=== PATIENT | male | born 1950 | race Caucasian/White ===

== ENCOUNTER 2021-03-16 11:58 | Day surgery (SDC) | payer MEDICARE, OTHER ==
[~2021-03-16] VITALS: Ht 175.3 cm; Wt 81.6 kg
[~2021-03-16 11:58] MED LIST: Aspir 8181 MG PO; Flonase 0.05% N16 GM; GEMF600 PO; METF500 PO; Vitamin D1000 UNI1 PO
--- NOTE | 2021-03-16 13:30 | NUR ---
03/16/21 1330 Cait Escalona History, Chart, Medications and Allergies reviewed before start of procedure. Patient confirms NPO status and agrees with scheduled surgery. 3-LEAD EKG REVIEWED WITH PHYSICIAN PRIOR TO START OF PROCEDURE. MONITOR INTACT WITH CONTINUOUS PULSE OXIMETRY AND INTERMITTENT BP. PATIENT DETERMINED TO BE ASA APPROPRIATE FOR PROPOFOL SEDATION PRIOR TO START OF PROCEDURE BY . [facility]ICA SCOPE NUMBER [id number].
--- NOTE | 2021-03-16 14:06 | NUR ---
Patient States Post-Procedure ride home has been arranged. Discharge instructions reviewed with patient. Patient verbalizes understanding. Copy given to patient to take home. Discharged via wheelchair to private car for ride home.
== END 2021-03-16 14:00 | disposition home or self-care (01) ==
LOC: ORSCMMR 11:58 → ORSCSDS 13:00 → ORSCMMR 13:00
PROVIDERS: Surgery
PROC: 0DBE8ZX Excision of Large Intestine, Via Natural or Artificial Opening Endoscopic, Diagnostic (ICD-10-PCS; principal; 2021-03-16 13:00)
DX: R19.4 Change in bowel habit (principal); R19.7 Diarrhea, unspecified; Z86.010 Personal history of colon polyps; R73.03 Prediabetes; J44.9 Chronic obstructive pulmonary disease, unspecified; F17.210 Nicotine dependence, cigarettes, uncomplicated; R13.10 Dysphagia, unspecified; Z79.82 Long term (current) use of aspirin; Z79.84 Long term (current) use of oral hypoglycemic drugs; Z79.899 Other long term (current) drug therapy
CPT/HCPCS: 82947; 88305; J2704; J7120

== ENCOUNTER 2024-11-21 06:42 | Day surgery (SDC) | payer MEDICARE, OTHER ==
[2024-11-21] VITALS (9 sets, daily range): BP systolic 77–120; BP diastolic 39–94
[~2024-11-21] VITALS: Ht 175.3 cm; Wt 69.4 kg
[~2024-11-21 06:42] MED LIST changes: +ASPI81CH PO; +ATOR40TA PO; +GABA400 PO; +JARDIANCE10 MG PO; +OXYC10TA19 PO; +TAMS.4ER PO
[2024-11-21] MEDS ORDERED: Heparin Sodium 1000 Units/ML 10ML MDV ONE ×2 (07:06→07:33)
[2024-11-21] MEDS ORDERED: Verapamil HCL 2.5 MG/ML 2ML Injection ONE (07:06)
[2024-11-21] MEDS ORDERED: Nitroglycerin 2 MG/20 ML BTL ONE (07:07)
[2024-11-21] MEDS ORDERED: NS 1,000 ML IV ONE ×2 (07:07→07:33)
[2024-11-21] MEDS ORDERED: NS 250 ML IV ONE (07:07)
[2024-11-21] MEDS ORDERED: FentaNYL Citrate 50 MCG/ML 2 ML Injection ONE (07:33)
[2024-11-21] MEDS ORDERED: Midazolam HCl 1MG / ML 2ML Vial ONE (07:33)
--- NOTE | 2024-11-21 08:46 | NUR ---
PT RETURNED TO RECOVERY ROOM IN [facility]. RIGHT RADIAL TR BAND SITE SOFT NON-TENDER WITH NO HEMATOMA, NO PULSATILE BLEEDING WITH RIGHT WRIST BRACE IN PLACE. PT'S FAMILY IN ROOM AND DR DAVIDSON IN ROOM TO SEE PT. CALL LIGHT IN REACH.
[2024-11-21] MEDS ORDERED: MIDODRINE HCL10 M1 PO (08:59)
--- NOTE | 2024-11-21 09:09 | NUR ---
NO CHANGES TO R [facility] SITE. PT EATING BREAKFAST AND DRINKING COFFEE. PT DENIES DIZZINESS STATES "FEELING GOOD". PT'S FAMILY IN ROOM.
--- NOTE | 2024-11-21 09:32 | NUR ---
NO CHANGES TO R RAD SITE.
[2024-11-21] MEDS ORDERED: NORTHERA100 MG PO (10:05)
--- NOTE | 2024-11-21 10:07 | NUR ---
7 CC OF AIR REMOVED OUT OF NOW DEFLATED R TR BAND (STARTED AT 0956) OVER 7 MIN; R RAD SITE STILL SOFT NON-TENDER WITH NO HEMATOMA, NO PULSATILE BLEEDING AND RIGHT WRIST BRACE STILL IN PLACE. DISCHARGE INSTRUCTIONS REVIEWED ALL QUESTIONS ANSWERED.
--- NOTE | 2024-11-21 10:21 | NUR ---
NO CHANGES TO R RAD SITE.
--- NOTE | 2024-11-21 11:05 | NUR ---
NO CHANGES TO DEFLATED R RAD TR BAND SITE; STILL SOFT NON-TENDER WITH NO HEMATOMA, NO PULSATILE BLEEDING. DEFLATED TR BAND REMOVED, POLYMEM PLACED OVER R RAD SITE AND RIGHT RAD WRIST BOARD PLACED. 20 G IV DISCONTINUED FROM RIGHT AC WITH INTACT CANNULA. PT ESCORTED OUT VIA WHEELCHAIR ESCORT.
== END 2024-11-21 11:05 | disposition home or self-care (01) ==
LOC: MHTC 06:42
DX: I25.10 Atherosclerotic heart disease of native coronary artery without angina pectoris (principal); I25.82 Chronic total occlusion of coronary artery; E11.9 Type 2 diabetes mellitus without complications; E78.5 Hyperlipidemia, unspecified; I95.1 Orthostatic hypotension; H91.90 Unspecified hearing loss, unspecified ear; Z87.891 Personal history of nicotine dependence; Z79.82 Long term (current) use of aspirin; Z79.899 Other long term (current) drug therapy
CPT/HCPCS: 76937; 85347; 93458; 93571; 99152; 99153; A9270; C1769; C1887; C1894; J1644; J2250; J3010; J7030; J7050; Q9967